=== PATIENT | female | born 1965 | race African-American/Black ===

== ENCOUNTER 2021-01-08 14:38 | Inpatient (IN) | payer MEDICARE, MEDICAID ==
[~2021-01-08] VITALS: Ht 170.2 cm; Wt 123.1 kg
[2021-01-08] MEDS ORDERED: FUROSEMIDE 20MG/2ML VIAL IVP ONE (17:30)
[2021-01-08 18:04] LABS: EOSINOPHILS % 2.9 % (0.0-5.0); HEMATOCRIT. 36.4 % (36.0-48.0); HEMOGLOBIN. 12.3 g/dL (12.0-16.0); LYMPHOCYTES % 43.2 % (20.0-50.0); MEAN CORPUSCULAR HEMOGLOBIN 28.6 pg (28.0-32.0); MEAN CORPUSCULAR VOLUME 84.8 fL (81.0-99.0); MEAN PLATELET VOLUME 8.1 fl (7.4-10.4); MONOCYTES % 6.1 % (2.0-8.0); NEUTROPHILS % 46.8 % (40.0-76.0); PLATELET 301 x1000/uL (130-400); RED BLOOD CELL COUNT 4.29 mill/uL (4.2-5.4)
[2021-01-08 18:08] LABS: CHLORIDE 108 mEq/L (98-107)
[2021-01-08] MEDS ORDERED: ASPIRIN 325MG EC TABLET PO ONE (20:00)
[2021-01-08] MEDS ORDERED: ZOLPIDEM TARTRATE 5MG TABLET PO PRN (22:00)
[2021-01-08] MEDS ORDERED: NITROGLYCERIN 0.4MG TABLET SL SL PRN (22:00)
[2021-01-08] MEDS ORDERED: ONDANSETRON HCL 4MG/2ML INJ IV PRN (22:00)
[2021-01-08] MEDS ORDERED: ACETAMINOPHEN 325MG TABLET PO PRN ×2 (22:00)
[2021-01-08] MEDS ORDERED: GUAIFENESIN 200MG/10ML SUGAR FREE UDC PO PRN (22:00)
[2021-01-08] MEDS ORDERED: MAGNESIUM/ALUMINUM HYDROXIDE/SIMETHICONE 30ML UDC PO PRN (22:00)
[2021-01-08] MEDS ORDERED: DOCUSATE SODIUM 100MG CAPSULE PO PRN (22:00)
[2021-01-08] MEDS ORDERED: KETOROLAC 15MG/ML VIAL IV PRN (22:00)
[2021-01-08] MEDS ORDERED: CLONIDINE 0.1MG TABLET PO PRN (22:00)
[2021-01-08] MEDS: ENOXAPARIN 30MG/0.3ML SYR SUBCUT SCH (22:37)
[2021-01-08 23:00] LABS: ETHANOL BLOOD < 10 mg/dL
[2021-01-08 23:02] LABS: LDL CHOLESTEROL 139 mg/dL (5-100); TOTAL IRON BINDING CAPACITY 364 ug/dL (250-450)
[2021-01-08 23:04] LABS: CREATINE KINASE 331 IU/L (26-192); HDL CHOLESTEROL 51 mg/dL (40-59)
[2021-01-08 23:06] LABS: CREATINE KINASE MB FRACTION 3.4 ng/mL (0.5-3.6)
[2021-01-08 23:17] LABS: FOLIC ACID (FOLATE) SERUM 18.8 ng/mL (>5.38)
[2021-01-09 05:58] LABS: EOSINOPHILS % 2.3 % (0.0-5.0); HEMATOCRIT. 34.8 % (36.0-48.0); HEMOGLOBIN. 11.2 g/dL (12.0-16.0); LYMPHOCYTES % 40.8 % (20.0-50.0); MEAN CORPUSCULAR HEMOGLOBIN 27.6 pg (28.0-32.0); MEAN CORPUSCULAR VOLUME 85.7 fL (81.0-99.0); MEAN PLATELET VOLUME 8.3 fl (7.4-10.4); MONOCYTES % 6.2 % (2.0-8.0); NEUTROPHILS % 49.7 % (40.0-76.0); PLATELET 274 x1000/uL (130-400); RED BLOOD CELL COUNT 4.06 mill/uL (4.2-5.4); RED CELL DISTRIBUTION WIDTH 15.8 % (11.6-14.6)
[2021-01-09 06:02] LABS: CHLORIDE 108 mEq/L (98-107)
[2021-01-09 06:10] LABS: CREATINE KINASE 249 IU/L (26-192)
[2021-01-09 08:10] LABS: *AMPHETAMINES SCREEN URINE NEGATIVE (NEGATIVE); *BARBITURATES SCREEN URINE NEGATIVE (NEGATIVE); *BENZODIAZEPINES SCREEN URINE NEGATIVE (NEGATIVE); *COCAINE SCREEN URINE NEGATIVE (NEGATIVE); METHADONE URINE SCREEN NEGATIVE (NEGATIVE); OPIATES URINE SCREEN NEGATIVE (NEGATIVE)
[2021-01-09 08:11] LABS: CANNABINOID URINE SCREEN NEGATIVE (NEGATIVE); PHENCYCLIDINE URINE SCREEN NEGATIVE (NEGATIVE)
[2021-01-09 09:00] VITALS: BP 120/82
[2021-01-09] MEDS ORDERED: ASPIRIN 325MG EC TABLET PO SCH (09:00)
[2021-01-09] MEDS: FAMOTIDINE 20MG TABLET PO SCH ×2 (10:14→21:00)
[2021-01-09] MEDS: SPIRONOLACTONE 25MG TABLET PO SCH ×2 (10:15→21:00)
[2021-01-09] MEDS: CHOLECALCIFEROL (D3) 1000 UNIT TABLET PO SCH (10:16)
[2021-01-09] MEDS: ASCORBIC ACID 500 MG TABLET PO SCH ×2 (10:16→21:31)
[2021-01-09] MEDS: ZINC SULFATE 220 MG ( 50 ) CAPSULE PO SCH (10:16)
[2021-01-09] MEDS: LISINOPRIL 10MG TABLET PO SCH ×2 (10:17→21:00)
[2021-01-09] MEDS: ENOXAPARIN 30MG/0.3ML SYR SUBCUT SCH ×2 (10:18→21:32)
[2021-01-09] MEDS: FUROSEMIDE 40MG/4ML VIAL IVP SCH ×2 (10:19→21:31)
[2021-01-09] MEDS ORDERED: ATOR10TA69 PO (11:11)
[2021-01-09] MEDS ORDERED: ERGO400C (11:11)
[2021-01-09] MEDS ORDERED: GUAI5LIQ8 MT (11:11)
[2021-01-09] MEDS ORDERED: FLUT1AER INH (11:11)
[2021-01-09] MEDS ORDERED: AMLO10TA80 PO (11:11)
[2021-01-09] MEDS ORDERED: MONT10TA21 PO (11:11)
[2021-01-09] MEDS ORDERED: BICT1TAB PO (11:11)
[2021-01-09] MEDS ORDERED: MULT-1116 MT (11:11)
[2021-01-09] MEDS ORDERED: ALBU05 NEB (11:11)
[2021-01-09] MEDS ORDERED: CLON0.5T4 PO (11:11)
[2021-01-09] MEDS ORDERED: BUDE6HFA INH (11:11)
[2021-01-09 11:21] VITALS: BP 120/82
[2021-01-09 12:00] VITALS: BP 128/74
[2021-01-09 16:00] VITALS: BP 121/71
[2021-01-09 20:00] VITALS: BP 101/64
[2021-01-09 23:56] VITALS: BP 105/44
[2021-01-10 04:00] VITALS: BP 119/71
[2021-01-10 06:17] LABS: ABSOLUTE BASOPHILS 0.1 x10E3/uL (0.0-0.2); ABSOLUTE EOSINOPHILS 0.2 x10E3/uL (0.0-0.4); ABSOLUTE LYMPHOCYTES 3.2 x10E3/uL (0.7-3.1); ABSOLUTE MONOCYTES 0.5 x10E3/uL (0.1-0.9); ABSOLUTE NEUTROPHILS 3.1 x10E3/uL (1.4-7.0); BASOPHILS 1 % (Not Estab.); HEMATOCRIT 39.3 % (34.0-46.6); HEMOGLOBIN 12.5 g/dL (11.1-15.9); IMMATURE GRANULOCYTES 0 % (Not Estab.); LYMPHOCYTES 45 % (Not Estab.); MEAN CORPUSCULAR HEMOGLOBIN 27.8 pg (26.6-33.0); MEAN CORPUSCULAR HGB CONC. 31.8 g/dL (31.5-35.7); MEAN CORPUSCULAR VOLUME 87 fL (79-97); MONOCYTES 8 % (Not Estab.); NEUTROPHILS 44 % (Not Estab.); PLATELETS 293 x10E3/uL (150-450); RED CELL DISTRIBUTION WIDTH 14.7 % (11.7-15.4)
[2021-01-10 08:00] VITALS: BP 137/73
[2021-01-10] MEDS: SPIRONOLACTONE 25MG TABLET PO SCH ×2 (08:39→20:12)
[2021-01-10] MEDS: CHOLECALCIFEROL (D3) 1000 UNIT TABLET PO SCH (08:39)
[2021-01-10] MEDS: FUROSEMIDE 40MG/4ML VIAL IVP SCH ×2 (08:39→20:11)
[2021-01-10] MEDS: ZINC SULFATE 220 MG ( 50 ) CAPSULE PO SCH (08:40)
[2021-01-10] MEDS: FAMOTIDINE 20MG TABLET PO SCH ×2 (08:40→20:12)
[2021-01-10] MEDS: ASCORBIC ACID 500 MG TABLET PO SCH ×2 (08:40→20:12)
[2021-01-10] MEDS: LISINOPRIL 10MG TABLET PO SCH ×2 (08:40→20:12)
[2021-01-10] MEDS: ASPIRIN 81MG EC TABLET PO SCH (08:40)
[2021-01-10 09:10] LABS: % CD 3 POS. LYMPHOCYTES 80.8 % (57.5-86.2); % CD 4 POS. LYMPHOCYTES 35.2 % (30.8-58.5); ABSOLUTE CD 3 2586 /uL (622-2402); ABSOLUTE CD 4 HELPER 1126 /uL (359-1519); ABSOLUTE CD 8 SUPPRESSOR 1408 /uL (109-897)
[2021-01-10] MEDS ORDERED: NON FORMULARY PATIENT HOME MED XX SCH (10:00)
[2021-01-10] MEDS: ENOXAPARIN 30MG/0.3ML SYR SUBCUT SCH ×2 (11:25→20:11)
[2021-01-10 12:00] VITALS: BP 104/58
[2021-01-10 16:00] VITALS: BP 114/66
[2021-01-10 20:00] VITALS: BP 101/55
[2021-01-11] VITALS: BP 114/47
[2021-01-11 04:00] VITALS: BP 109/61
[2021-01-11 08:00] VITALS: BP 130/77
[2021-01-11] MEDS: ASPIRIN 81MG EC TABLET PO SCH (08:34)
[2021-01-11] MEDS: LISINOPRIL 10MG TABLET PO SCH (08:35)
[2021-01-11] MEDS: ASCORBIC ACID 500 MG TABLET PO SCH (08:35)
[2021-01-11] MEDS: CHOLECALCIFEROL (D3) 1000 UNIT TABLET PO SCH (08:35)
[2021-01-11] MEDS: SPIRONOLACTONE 25MG TABLET PO SCH (08:35)
[2021-01-11] MEDS: FAMOTIDINE 20MG TABLET PO SCH (08:35)
[2021-01-11] MEDS: ZINC SULFATE 220 MG ( 50 ) CAPSULE PO SCH (08:35)
[2021-01-11] MEDS ORDERED: FUROSEMIDE 40MG TABLET PO SCH (09:00)
[2021-01-11] MEDS: ENOXAPARIN 30MG/0.3ML SYR SUBCUT SCH (09:14)
[2021-01-11 09:16] VITALS: BP 130/73
== END 2021-01-11 09:45 | disposition home or self-care (01) | DRG 291 ==
LOC: ER 14:38 → 5WST 19:56 → SUPCPDRO 22:00 → ENRESERV 01-09 07:26
PROVIDERS: ADMIT Internal Medicine; ATTEND Internal Medicine
DX: I11.0 Hypertensive heart disease with heart failure (principal); J96.01 Acute respiratory failure with hypoxia; I16.1 Hypertensive emergency; Z68.41 Body mass index [BMI] 40.0-44.9, adult; I50.33 Acute on chronic diastolic (congestive) heart failure; E66.9 Obesity, unspecified; Z79.1 Long term (current) use of non-steroidal anti-inflammatories (NSAID); Z79.51 Long term (current) use of inhaled steroids; Z79.899 Other long term (current) drug therapy; Z91.14 Patient's other noncompliance with medication regimen; Z82.49 Family history of ischemic heart disease and other diseases of the circulatory system; Z71.3 Dietary counseling and surveillance; Z21 Asymptomatic human immunodeficiency virus [HIV] infection status
CPT/HCPCS: 36415; 71045; 80053; 80061; 80305; 80320; 82550; 82553; 82607; 82746; 83036; 83540; 83550; 83735; 83880; 84484; 85025; 86359; 86360; 93005; 93306; 93970; 99285; J1650; J1885; J1940; G0480